=== PATIENT | male | born 1970 | race African-American/Black ===

== ENCOUNTER 2020-03-09 10:53 | Inpatient (IN) | payer OTHER ==
[~2020-03-09] VITALS: Ht 180.3 cm; Wt 116.0 kg
[~2020-03-09 10:53] MED LIST: AML5T PO; HYDR25TA4 PO; LOSA-69 PO; MET50T PO
[2020-03-09] MEDS ORDERED: MORPHINE SULFATE 4 MG/ML SYR/VIAL IV ONE (11:00)
[2020-03-09] MEDS ORDERED: ONDANSETRON HCL 4 MG/2 ML VIAL IV ONE (11:00)
[2020-03-09 11:36] LABS: Basophils # (auto) 0.1 10 ^3/uL (0-0.2); Basophils % (auto) 2.4 % (0.0-2.0); Eosinophils # (auto) 0.7 10 ^3/uL (0-0.8); Eosinophils % (auto) 14.1 % (0.0-7.0); Hematocrit 48.6 % (41.0-53.0); Hemoglobin 15.8 g/dL (13.5-17.5); Lymphocytes # (auto) 1.7 10 ^3/uL (0.4-5.4); Lymphocytes % (auto) 32.7 % (10.0-50.0); Mean Corpuscular Hemoglobin 27.1 pg (28.0-32.0); Mean Corpuscular Hgb Conc. 32.5 g/dL (32.0-36.0); Mean Corpuscular Volume 83.5 fL (80.0-100.0); Monocytes # (auto) 0.4 10 ^3/uL (0-1.3); Monocytes % (auto) 7.9 % (0.0-12.0); Neutrophils # (auto) 2.2 10 ^3/uL (1.6-8.6); Neutrophils % (auto) 42.9 % (37.0-80.0); Nucleated Red Blood Cells % 0.1 %; Platelet Count (auto) 256 10^3/uL (140-450); Red Blood Cells 5.82 10^6/uL (4.5-5.90); Red Cell Distribution Width 14.4 % (11.8-14.3); White Blood Cell 5.1 10^3/uL (4.4-10.8)
[2020-03-09 11:55] LABS: Anion Gap 4 (5-15); Blood Urea Nitrogen 11 mg/dL (7-18); Calcium 9.3 mg/dL (8.5-10.1); Carbon Dioxide 30 mmol/L (21-32); Chloride 105 mmol/L (98-107); Glucose 95 mg/dL (74-106); Potassium 3.8 mmol/L (3.5-5.1); Sodium 139 mmol/L (136-145)
[2020-03-09 12:00] LABS: Alanine Aminotransferase 22 U/L (16-61); Alkaline Phosphatase 56 U/L (45-117); Aspartate Aminotransferase 18 U/L (15-37); BUN/Creatinine Ratio 8.5; Bilirubin, Total 0.6 mg/dL (0.2-1.0); GFR African American 75 mL/min; GFR Non-African American 62 mL/min; Total Protein 7.8 g/dL (6.4-8.2)
[2020-03-09] MEDS ORDERED: ALBUTEROL SULF 2.5 MG/0.5ML(0.5%) NEB SOLN NEB SCH (13:15)
[2020-03-09] MEDS ORDERED: NITROGLYCERIN 0.4 MG SL TAB SL PRN (13:15)
[2020-03-09] MEDS ORDERED: BUDESONIDE (INHALATION) 0.5 MG/2 ML NEB NEB SCH (13:15)
[2020-03-09] MEDS ORDERED: MORPHINE SULF INJ 2 MG/ML SYRINGE 1ML IV PRN (13:15)
[2020-03-09] MEDS ORDERED: HYDROcodone-ACET 10/325MG TAB PO SCH (14:00)
[2020-03-09] MEDS ORDERED: METF-370 PO (14:32)
[2020-03-09] MEDS ORDERED: TRIA0.1C4 EX (14:32)
[2020-03-09] MEDS ORDERED: ASPI-498 PO (14:32)
[2020-03-09] MEDS ORDERED: ALBUAER3 IN (14:32)
[2020-03-09] MEDS ORDERED: BUDE1AER4 IN (14:32)
[2020-03-09] MEDS ORDERED: FLUT1SPR5 (14:32)
[2020-03-09 15:30] VITALS: BP 134/79
--- NOTE | 2020-03-09 15:30 | NUR ---
Telemetry admit from ER IDA MOSHER admitted to Telemetry unit after SBAR received. Patient oriented to Lou Tony, primary RN, unit, room, bed, and unit policies regarding patient care. Patient now on continuous telemetry monitoring, tele box # 41 and telemetry reading on arrival to unit is sinus rhythm in the 60's. Updated on POC and instructed to call for assistance as needed. Bed locked in lowest position, side rails up x2, call light within reach. Guards at bedside. Will continue to monitor q1hr and PRN.
--- NOTE | 2020-03-09 17:45 | NUR ---
COVID SWAB TAKEN TO LAB
--- NOTE | 2020-03-09 19:30 | NUR ---
Opening Shift Note Assumed care of patient, awake and alert. No S/S of distress/SOB or pain noted. Instructed on POC and to call for assist PRN. Bed is in lowest locked position with bed rails up x2 and call light is within reach of the patient. Guard at the bedside.
--- NOTE | 2020-03-09 20:30 | NUR ---
Paged Dr. May: Paged Dr. May for breathing treatment. Patient stated he takes breathing treatments at home for his asthma and says he may need one soon. No PRNs available. Waiting for call back.
--- NOTE | 2020-03-09 20:45 | NUR ---
called back: Md May called back, updated about patients request for breathing treatment for asthma. New orders received. To place orders.
[2020-03-09] MEDS: HYDROcodone-ACET 10/325MG TAB PO PRN (20:59)
--- NOTE | 2020-03-09 21:30 | NUR ---
Breathing treatment on hold: Per RT per policy. Patient cannot have breathing treatment until COVID result comes back negative. Informed patient and patient verbalized understanding.
[2020-03-09 22:00] VITALS: BP 135/98
--- NOTE | 2020-03-10 00:35 | NUR ---
MD Diamond at the bedside.
[2020-03-10] MEDS: ALBUTEROL SULF 2.5 MG/0.5ML(0.5%) NEB SOLN NEB PRN ×2 (01:07→09:14)
[2020-03-10 01:24] VITALS: BP 135/98
[2020-03-10] MEDS ORDERED: ALBUTEROL SULF HFA 90MCG INH 200DOSE IN SCH ×2 (02:00)
[2020-03-10 05:00] VITALS: BP 140/96
--- NOTE | 2020-03-10 07:30 | NUR ---
Opening Shift Note Assumed care of patient, awake and alert. No S/S of distress/SOB or pain noted. Instructed on POC and to call for assistance PRN. Bed locked in lowest position with bed rails up x2 and call light is within reach of the patient. Guard at the bedside. Will continue to monitor q1hr and PRN.
[2020-03-10 08:59] VITALS: BP 145/100
--- NOTE | 2020-03-10 09:36 | NUR ---
Respiratory note: PATIENT REQUESTED PRN MED-NEB TX. MEDICATION ADMINISTERED AT 0915 PATIENT WAS HAVING EXPIRATORY WHEEZING T/O. 1000 PULMICORT ADMINISTERED AT THIS TIME WELL. PATIENT STATED RELIEF POST TX. HE WAS INSTRUCTED TO REQUEST RESPIRATORY SERVICES AGAIN IF HE FELT THE NEED FOR PRN MED-NEB AT A LATER TIME.
[2020-03-10] MEDS ORDERED: METOPROLOL SUCCINATE XL 50 MG TAB PO SCH (10:00)
[2020-03-10] MEDS ORDERED: ASPirin-EC 81 mg tab PO SCH (10:00)
[2020-03-10] MEDS ORDERED: LISINOPRIL 5 MG TAB PO SCH (10:00)
[2020-03-10] MEDS ORDERED: HCTZ 25 MG TAB PO SCH (10:00)
[2020-03-10] MEDS ORDERED: ENOXAPARIN SOD 40 MG/0.4 ML SYRINGE SC SCH (10:00)
[2020-03-10] MEDS ORDERED: BUDESONIDE (INHALATION) 0.5 MG/2 ML NEB NEB SCH (10:00)
[2020-03-10] MEDS ORDERED: PANTOPRAZOLE 40 MG TAB PO SCH (10:00)
[2020-03-10] MEDS: HYDROcodone-ACET 10/325MG TAB PO PRN (10:02)
--- NOTE | 2020-03-10 10:03 | NUR ---
Blood glucose check, BS 119.
[2020-03-10 12:31] VITALS: BP 124/87
[2020-03-10] MEDS ORDERED: NAP500T PO (16:28)
[2020-03-10] MEDS ORDERED: TIZA4CAP PO (16:28)
[2020-03-10 16:52] VITALS: BP 128/87
[2020-03-10 17:22] VITALS: BP 128/87
--- NOTE | 2020-03-10 18:15 | NUR ---
DISCHARGE TO LONGTERM Discharge instructions given as ordered. Encourage to follow up with [facility] as instructed. All questions and concerns addressed. Patient verbalized understanding. Medication reconciliation form completed and copy given to guards. IV's removed with catheter intact, pressure dressing applied. Telemetry unit returned to ICU. Patient released to the care of the guards, pending pickup.
== END 2020-03-10 18:27 | DRG 313 ==
LOC: ER 10:53 → EEVIPCON 10:53 → EDBD 10:53 → TELE 10:54 → TELE-CENTR 15:22
PROVIDERS: ADMIT Internal Medicine; ATTEND Internal Medicine
DX: R07.89 Other chest pain (principal); E11.9 Type 2 diabetes mellitus without complications; I10 Essential (primary) hypertension; I48.91 Unspecified atrial fibrillation; J45.909 Unspecified asthma, uncomplicated; M10.9 Gout, unspecified; Z20.828 Contact with and (suspected) exposure to other viral communicable diseases; Z82.49 Family history of ischemic heart disease and other diseases of the circulatory system; Z82.5 Family history of asthma and other chronic lower respiratory diseases; Z83.3 Family history of diabetes mellitus; Z87.891 Personal history of nicotine dependence; Z79.899 Other long term (current) drug therapy; Z79.82 Long term (current) use of aspirin
CPT/HCPCS: 36415; 71045; 80053; 82962; 83880; 84484; 85025; 93005; 94640; 96374; 96375; G0378; J2405

== ENCOUNTER 2020-06-21 11:45 | Inpatient (IN) | payer OTHER ==
[~2020-06-21] VITALS: Ht 177.8 cm; Wt 104.3 kg
[~2020-06-21 11:45] MED LIST changes: +ALBUAER3 IN; +ASPI-498 PO; +BUDE1AER4 IN; +FLUT1SPR5; +METF-370 PO; +NAP500T PO; +TIZA4CAP PO; +TRIA0.1C4 EX
[2020-06-21] MEDS ORDERED: methylPREDNISolone SOD SUCC 125 MG/2 ML VL IV ONE (12:30)
[2020-06-21 14:01] LABS: Basophils # (auto) 0 10 ^3/uL (0-0.2); Basophils % (auto) 1.2 % (0.0-2.0); Eosinophils # (auto) 0.1 10 ^3/uL (0-0.8); Eosinophils % (auto) 3.6 % (0.0-7.0); Hematocrit 46.5 % (41.0-53.0); Hemoglobin 15.7 g/dL (13.5-17.5); Lymphocytes # (auto) 1.3 10 ^3/uL (0.4-5.4); Lymphocytes % (auto) 33.8 % (10.0-50.0); Mean Corpuscular Hemoglobin 27.7 pg (28.0-32.0); Mean Corpuscular Hgb Conc. 33.7 g/dL (32.0-36.0); Mean Corpuscular Volume 82.2 fL (80.0-100.0); Monocytes # (auto) 0.4 10 ^3/uL (0-1.3); Monocytes % (auto) 10.5 % (0.0-12.0); Neutrophils % (auto) 50.9 % (37.0-80.0); Platelet Count (auto) 217 10^3/uL (140-450); Red Blood Cells 5.66 10^6/uL (4.5-5.90); Red Cell Distribution Width 14.4 % (11.8-14.3); White Blood Cell 3.9 10^3/uL (4.4-10.8)
[2020-06-21 14:30] LABS: Alanine Aminotransferase 21 U/L (16-61); Albumin 3.9 g/dL (3.4-5.0); Alkaline Phosphatase 61 U/L (45-117); Anion Gap 6 (5-15); Aspartate Aminotransferase 20 U/L (15-37); BUN/Creatinine Ratio 10.4; Bilirubin, Total 0.4 mg/dL (0.2-1.0); Blood Urea Nitrogen 12 mg/dL (7-18); CRP High Sensitivity 0.54 mg/dL (< 0.3); Calcium 8.8 mg/dL (8.5-10.1); Carbon Dioxide 27 mmol/L (21-32); Chloride 106 mmol/L (98-107); GFR African American 86 mL/min; GFR Non-African American 71 mL/min; Glucose 90 mg/dL (74-106); Lactate Dehydrogenase 235 U/L (87-241); Magnesium 2.6 mg/dL (1.6-2.6); Potassium 3.7 mmol/L (3.5-5.1); Sodium 139 mmol/L (136-145); Total Protein 7.9 g/dL (6.4-8.2)
[2020-06-21] MEDS ORDERED: IPRATROPIUM BROM 0.5 MG/2.5ML INH SOL HHN ONE (15:30)
[2020-06-21] MEDS ORDERED: ALBUTEROL SULF 2.5 MG/0.5ML(0.5%) NEB SOLN HHN ONE (15:30)
[2020-06-21] MEDS ORDERED: NITROGLYCERIN 0.4 MG SL TAB SL PRN (16:30)
[2020-06-21] MEDS ORDERED: MORPHINE SULF INJ 2 MG/ML SYRINGE 1ML IV PRN (16:30)
[2020-06-21] MEDS: metFORMIN HYDROCHLORIDE 500 MG TAB PO SCH ×2 (17:00→17:24)
[2020-06-21] MEDS ORDERED: DEXTROSE (50%) 50ML SYRG IV PRN (18:00)
[2020-06-21] MEDS ORDERED: HYDROcodone-ACET 10/325MG TAB PO PRN (18:00)
[2020-06-21] MEDS ORDERED: ONDANSETRON HCL 4 MG/2 ML VIAL IV PRN (18:00)
[2020-06-21] MEDS: InsuLIN REG 1unit/0.01ml Soln (100units/ml) SC SCH (22:00)
[2020-06-21] MEDS: ACCU-CHEK COMFORT CURVE STRIP VI SCH (22:50)
[2020-06-22] MEDS: InsuLIN REG 1unit/0.01ml Soln (100units/ml) SC SCH ×2 (06:30→13:54)
[2020-06-22] MEDS: ACCU-CHEK COMFORT CURVE STRIP VI SCH ×2 (06:30→14:00)
[2020-06-22] MEDS ORDERED: ASPirin 81 mg TAB PO SCH (10:00)
[2020-06-22] MEDS ORDERED: LOSARTAN POTASSIUM 50 MG TAB PO SCH ×2 (10:00)
[2020-06-22] MEDS ORDERED: HCTZ 25 MG TAB PO SCH (10:00)
[2020-06-22] MEDS ORDERED: ALBUTEROL SULF HFA 90MCG INH 200DOSE IN SCH (14:00)
[2020-06-22 14:35] VITALS: BP 131/92
[2020-06-22] MEDS ORDERED: BUDESONIDE (INHALATION) 180 MCG IH IN SCH (22:00)
[2020-06-22] MEDS ORDERED: PULMICORT 180 MCG INH SCH (22:00)
== END 2020-06-22 16:19 | DRG 313 ==
LOC: EEVIPCON 11:45 → ER 11:45 → EDBD 11:45 → TELE 11:46
PROVIDERS: ADMIT Internal Medicine; ATTEND Internal Medicine
DX: R07.89 Other chest pain (principal); U07.1 COVID-19; E11.9 Type 2 diabetes mellitus without complications; I10 Essential (primary) hypertension; J45.909 Unspecified asthma, uncomplicated; M10.9 Gout, unspecified; Z83.3 Family history of diabetes mellitus; Z82.49 Family history of ischemic heart disease and other diseases of the circulatory system; Z87.891 Personal history of nicotine dependence; Z82.5 Family history of asthma and other chronic lower respiratory diseases
CPT/HCPCS: 36415; 71045; 80053; 82728; 82962; 83605; 83615; 83735; 83880; 84484; 85025; 85379; 86141; 87040; 94640; 96374; G0378; J1815

== ENCOUNTER 2020-08-27 22:02 | Emergency (ER) | payer OTHER ==
[~2020-08-27] VITALS: Ht 180.3 cm; Wt 112.5 kg
[2020-08-27 22:34] LABS: Basophils # (auto) 0 10 ^3/uL (0-0.2); Basophils % (auto) 0.2 % (0.0-2.0); Eosinophils # (auto) 0.7 10 ^3/uL (0-0.8); Eosinophils % (auto) 10.6 % (0.0-7.0); Hematocrit 42.3 % (41.0-53.0); Hemoglobin 14.6 g/dL (13.5-17.5); Lymphocytes # (auto) 2.4 10 ^3/uL (0.4-5.4); Lymphocytes % (auto) 34.8 % (10.0-50.0); Mean Corpuscular Hemoglobin 28.2 pg (28.0-32.0); Mean Corpuscular Hgb Conc. 34.6 g/dL (32.0-36.0); Mean Corpuscular Volume 81.4 fL (80.0-100.0); Monocytes # (auto) 0.5 10 ^3/uL (0-1.3); Monocytes % (auto) 7.8 % (0.0-12.0); Neutrophils # (auto) 3.2 10 ^3/uL (1.6-8.6); Neutrophils % (auto) 46.6 % (37.0-80.0); Nucleated Red Blood Cells % 0.1 %; Platelet Count (auto) 267 10^3/uL (140-450); Red Cell Distribution Width 14.6 % (11.8-14.3); White Blood Cell 6.8 10^3/uL (4.4-10.8)
[2020-08-27 22:54] LABS: Alanine Aminotransferase 24 U/L (16-61); Albumin 4.2 g/dL (3.4-5.0); Anion Gap 12 (5-15); Aspartate Aminotransferase 20 U/L (15-37); BUN/Creatinine Ratio 12.1; Blood Urea Nitrogen 16 mg/dL (7-18); Calcium 9.3 mg/dL (8.5-10.1); Carbon Dioxide 21 mmol/L (21-32); Chloride 107 mmol/L (98-107); GFR African American 73 mL/min; GFR Non-African American 61 mL/min; Glucose 93 mg/dL (74-106); INR 1.06 (0.9-1.15); Magnesium 2.2 mg/dL (1.6-2.6); Potassium 3.5 mmol/L (3.5-5.1); Sodium 140 mmol/L (136-145)
[2020-08-27 22:58] LABS: Alkaline Phosphatase 50 U/L (45-117); Bilirubin, Total 0.6 mg/dL (0.2-1.0); Total Protein 7.7 g/dL (6.4-8.2)
[2020-08-27] MEDS ORDERED: ACETAMINOPHEN 500 MG TAB PO ONE (23:45)
[2020-08-28 04:00] VITALS: BP 145/104
[2020-08-28] MEDS ORDERED: IBUPROFEN 800 MG TAB PO ONE (04:30)
== END 2020-08-28 04:56 | disposition home or self-care (01) ==
LOC: EDBD 22:02 → EEVIPCON 22:08 → ER 22:08
DX: R07.89 Other chest pain (principal); J45.909 Unspecified asthma, uncomplicated; E11.9 Type 2 diabetes mellitus without complications; I10 Essential (primary) hypertension; I25.2 Old myocardial infarction
CPT/HCPCS: 36415; 71045; 80053; 83735; 83880; 84484; 85025; 85610; 93005

== ENCOUNTER 2020-09-08 16:12 | Inpatient (IN) | payer OTHER ==
[~2020-09-08] VITALS: Ht 180.3 cm; Wt 107.9 kg
[2020-09-08 18:36] LABS: Basophils # (auto) 0.1 10 ^3/uL (0-0.2); Basophils % (auto) 2.3 % (0.0-2.0); Eosinophils # (auto) 0.3 10 ^3/uL (0-0.8); Eosinophils % (auto) 7.9 % (0.0-7.0); Hemoglobin 13.5 g/dL (13.5-17.5); Lymphocytes # (auto) 1.5 10 ^3/uL (0.4-5.4); Lymphocytes % (auto) 36.7 % (10.0-50.0); Mean Corpuscular Hemoglobin 27.9 pg (28.0-32.0); Mean Corpuscular Hgb Conc. 33.9 g/dL (32.0-36.0); Mean Corpuscular Volume 82.4 fL (80.0-100.0); Monocytes # (auto) 0.4 10 ^3/uL (0-1.3); Monocytes % (auto) 10.2 % (0.0-12.0); Neutrophils # (auto) 1.8 10 ^3/uL (1.6-8.6); Neutrophils % (auto) 42.9 % (37.0-80.0); Nucleated Red Blood Cells % 0.1 %; Red Blood Cells 4.85 10^6/uL (4.5-5.90); Red Cell Distribution Width 15.1 % (11.8-14.3); White Blood Cell 4.1 10^3/uL (4.4-10.8)
[2020-09-08 19:00] LABS: Alanine Aminotransferase 47 U/L (16-61); Albumin 3.7 g/dL (3.4-5.0); Anion Gap 8 (5-15); Blood Urea Nitrogen 12 mg/dL (7-18); Calcium 8.5 mg/dL (8.5-10.1); Carbon Dioxide 24 mmol/L (21-32); Chloride 110 mmol/L (98-107); Glucose 98 mg/dL (74-106); Potassium 3.4 mmol/L (3.5-5.1); Sodium 142 mmol/L (136-145)
[2020-09-08 19:09] LABS: Alkaline Phosphatase 45 U/L (45-117); Aspartate Aminotransferase 15 U/L (15-37); BUN/Creatinine Ratio 11.1; Bilirubin, Total 0.6 mg/dL (0.2-1.0); GFR African American 92 mL/min; GFR Non-African American 76 mL/min; Total Protein 7.2 g/dL (6.4-8.2)
[2020-09-08] MEDS ORDERED: ACETAMINOPHEN 325 MG TAB PO ONE (20:45)
[2020-09-08] MEDS ORDERED: MORPHINE SULFATE INJECTION 2 MG/ML SYRG IV PRN (22:00)
[2020-09-08] MEDS ORDERED: NITROGLYCERIN 0.4 MG SL TAB SL PRN (22:00)
[2020-09-08] MEDS ORDERED: DEXTROSE (50%) 50ML SYRG IV PRN (22:00)
[2020-09-08] MEDS: InsuLIN REG 1unit/0.01ml Soln (100units/ml) SC SCH (22:52)
[2020-09-08] MEDS: ACCU-CHEK COMFORT CURVE STRIP VI SCH (22:52)
[2020-09-09] MEDS: HYDROcodone-ACET 10/325MG TAB PO PRN ×2 (02:35→17:58)
[2020-09-09] MEDS ORDERED: metFORMIN HYDROCHLORIDE 500 MG TAB PO SCH (07:00)
[2020-09-09] MEDS: InsuLIN REG 1unit/0.01ml Soln (100units/ml) SC SCH ×4 (07:00→22:00)
[2020-09-09] MEDS: ACCU-CHEK COMFORT CURVE STRIP VI SCH ×4 (07:04→22:07)
[2020-09-09] MEDS: SYMBICORT IN SCH ×2 (10:00→22:00)
[2020-09-09] MEDS: ENOXAPARIN SOD 40 MG/0.4 ML SYRINGE SC SCH (10:10)
[2020-09-09] MEDS: amLODIPine BESYLATE 5 MG TAB PO SCH (10:11)
[2020-09-09] MEDS: METOPROLOL TARTRATE 50 MG TAB PO SCH (10:12)
[2020-09-09] MEDS: LOSARTAN POTASSIUM 50 MG TAB PO SCH (10:13)
[2020-09-09] MEDS: ASPirin-EC 81 mg tab PO SCH (11:47)
[2020-09-09] MEDS: HCTZ 25 MG TAB PO SCH (11:48)
[2020-09-09] MEDS: ALBUTEROL SULF HFA 90MCG INH 200DOSE IN SCH (13:21)
[2020-09-09] MEDS ORDERED: HYDROcodone-ACET 10/325MG TAB PO PRN (13:30)
[2020-09-09 14:30] VITALS: BP 124/72
[2020-09-09] MEDS: ALBUTEROL SULF 2.5 MG/0.5ML(0.5%) NEB SOLN NEB SCH (18:50)
[2020-09-09 20:00] VITALS: BP 116/75
[2020-09-09] MEDS: methylPREDNISolone SOD SUCC 125 MG/2 ML VL IV SCH (22:10)
[2020-09-10 04:00] VITALS: BP_SYST 118; BP_SYST 141; BP_DIAS 81; BP_DIAS 85
[2020-09-10] MEDS: ALBUTEROL SULF 2.5 MG/0.5ML(0.5%) NEB SOLN NEB SCH ×2 (06:26→13:01)
[2020-09-10] MEDS: InsuLIN REG 1unit/0.01ml Soln (100units/ml) SC SCH ×2 (06:39→11:27)
[2020-09-10] MEDS: HYDROcodone-ACET 10/325MG TAB PO PRN (06:40)
[2020-09-10] MEDS: ACCU-CHEK COMFORT CURVE STRIP VI SCH ×2 (06:40→11:27)
[2020-09-10] MEDS: ASPirin-EC 81 mg tab PO SCH (09:25)
[2020-09-10] MEDS: LOSARTAN POTASSIUM 50 MG TAB PO SCH (09:25)
[2020-09-10] MEDS: HCTZ 25 MG TAB PO SCH (09:25)
[2020-09-10] MEDS: methylPREDNISolone SOD SUCC 125 MG/2 ML VL IV SCH (09:25)
[2020-09-10] MEDS: ENOXAPARIN SOD 40 MG/0.4 ML SYRINGE SC SCH (09:26)
[2020-09-10] MEDS: amLODIPine BESYLATE 5 MG TAB PO SCH (09:26)
[2020-09-10] MEDS: METOPROLOL TARTRATE 50 MG TAB PO SCH (09:26)
[2020-09-10] MEDS ORDERED: LORATADINE 10 MG TAB PO SCH (10:00)
[2020-09-10] MEDS ORDERED: FLUTICASONE PROP NASAL SPR 0.05 % (50MCG) 16GM EACHNOSTRI SCH (10:00)
[2020-09-10] MEDS: SYMBICORT IN SCH (10:00)
[2020-09-10 11:28] VITALS: BP 119/82
[2020-09-10] MEDS ORDERED: AZITTAB PO (13:21)
[2020-09-10] MEDS ORDERED: PRED20TA2 PO (13:21)
== END 2020-09-10 13:40 | DRG 313 ==
LOC: ER 16:12 → EEVIPCON 16:12 → EDBD 16:12 → TELE 16:13
PROVIDERS: ADMIT Internal Medicine; ATTEND Internal Medicine
DX: R07.9 Chest pain, unspecified (principal); J45.909 Unspecified asthma, uncomplicated; E11.9 Type 2 diabetes mellitus without complications; I10 Essential (primary) hypertension; I25.10 Atherosclerotic heart disease of native coronary artery without angina pectoris; K21.9 Gastro-esophageal reflux disease without esophagitis; Z20.822 Contact with and (suspected) exposure to COVID-19; Z82.49 Family history of ischemic heart disease and other diseases of the circulatory system; Z82.5 Family history of asthma and other chronic lower respiratory diseases; Z83.3 Family history of diabetes mellitus; Z87.891 Personal history of nicotine dependence; Z91.19 Patient's noncompliance with other medical treatment and regimen
CPT/HCPCS: 36415; 71045; 80053; 82962; 83880; 84484; 85025; 85379; 87426; 93005; 94640; G0378

== ENCOUNTER 2020-09-30 22:52 | Inpatient (IN) | payer OTHER ==
[~2020-09-30] VITALS: Ht 180.3 cm; Wt 113.1 kg
[~2020-09-30 22:52] MED LIST changes: +AZITTAB PO; +PRED20TA2 PO
[2020-09-30 23:27] LABS: Basophils # (auto) 0.1 10 ^3/uL (0-0.2); Basophils % (auto) 1.2 % (0.0-2.0); Eosinophils # (auto) 0.6 10 ^3/uL (0-0.8); Eosinophils % (auto) 10.7 % (0.0-7.0); Hematocrit 43.9 % (41.0-53.0); Lymphocytes # (auto) 1.7 10 ^3/uL (0.4-5.4); Lymphocytes % (auto) 28.7 % (10.0-50.0); Mean Corpuscular Hemoglobin 28.2 pg (28.0-32.0); Mean Corpuscular Hgb Conc. 34.1 g/dL (32.0-36.0); Mean Corpuscular Volume 82.8 fL (80.0-100.0); Monocytes # (auto) 0.4 10 ^3/uL (0-1.3); Monocytes % (auto) 6.6 % (0.0-12.0); Neutrophils # (auto) 3.2 10 ^3/uL (1.6-8.6); Neutrophils % (auto) 52.8 % (37.0-80.0); Nucleated Red Blood Cells % 0.1 %; Red Cell Distribution Width 14.8 % (11.8-14.3)
[2020-09-30 23:44] LABS: INR 1.05 (0.9-1.15)
[2020-09-30 23:48] LABS: Alanine Aminotransferase 32 U/L (16-61); Albumin 4.3 g/dL (3.4-5.0); Anion Gap 11 (5-15); Aspartate Aminotransferase 22 U/L (15-37); BUN/Creatinine Ratio 10.7; Blood Urea Nitrogen 16 mg/dL (7-18); Calcium 9.5 mg/dL (8.5-10.1); Carbon Dioxide 24 mmol/L (21-32); Chloride 107 mmol/L (98-107); GFR African American 64 mL/min; GFR Non-African American 53 mL/min; Glucose 101 mg/dL (74-106); Magnesium 2.2 mg/dL (1.6-2.6); Potassium 3.8 mmol/L (3.5-5.1); Sodium 142 mmol/L (136-145)
[2020-09-30 23:53] LABS: Alkaline Phosphatase 59 U/L (45-117); Bilirubin, Total 0.5 mg/dL (0.2-1.0); Total Protein 7.7 g/dL (6.4-8.2)
[2020-10-01] VITALS (8 sets, daily range): BP systolic 127–154; BP diastolic 77–94
[2020-10-01] MEDS ORDERED: NITROGLYCERIN 0.4 MG SL TAB SL ONE ×2 (00:35→00:45)
[2020-10-01] MEDS ORDERED: ACETAMINOPHEN 325 MG TAB PO ONE (02:30)
[2020-10-01] MEDS ORDERED: NITROGLYCERIN 0.4 MG SL TAB SL PRN (06:15)
[2020-10-01] MEDS ORDERED: ATOR40TA52 PO (06:23)
[2020-10-01] MEDS ORDERED: APIX5TAB PO (06:23)
[2020-10-01] MEDS ORDERED: ISOS10TA2 PO (06:23)
[2020-10-01] MEDS ORDERED: LOSA-69 PO (06:23)
[2020-10-01] MEDS ORDERED: GLIP5TAB12 PO (06:23)
[2020-10-01] MEDS ORDERED: MET50T PO (06:23)
[2020-10-01] MEDS ORDERED: FURO20TA3 PO (06:23)
[2020-10-01] MEDS ORDERED: LACT10PA2 PO (06:23)
[2020-10-01] MEDS ORDERED: OMEP-434 PO (06:23)
[2020-10-01] MEDS: HYDROcodone-ACET 10/325MG TAB PO PRN ×2 (06:41→22:31)
[2020-10-01] MEDS ORDERED: metFORMIN HYDROCHLORIDE 500 MG TAB PO SCH (07:00)
[2020-10-01] MEDS: ALBUTEROL SULF HFA 90MCG INH 200DOSE IN PRN (07:50)
[2020-10-01] MEDS ORDERED: DEXTROSE (50%) 50ML SYRG IV PRN (09:15)
[2020-10-01] MEDS ORDERED: APIXABAN 5 MG TAB PO SCH (10:00)
[2020-10-01] MEDS: BUDESONIDE (INHALATION) 0.5 MG/2 ML NEB NEB SCH ×2 (10:00→23:00)
[2020-10-01] MEDS: PANTOPRAZOLE 40 MG TAB PO SCH (10:00)
[2020-10-01] MEDS: APIXABAN 5 MG TAB PO SCH ×2 (10:40→21:14)
[2020-10-01] MEDS: METOPROLOL TARTRATE 50 MG TAB PO SCH (10:40)
[2020-10-01] MEDS: amLODIPine BESYLATE 5 MG TAB PO SCH (10:41)
[2020-10-01] MEDS: LOSARTAN POTASSIUM 50 MG TAB PO SCH (10:42)
[2020-10-01] MEDS: ASPirin 81 mg TAB PO SCH (10:42)
[2020-10-01] MEDS: SOD CHL 0.45% WITH 20MEQ KCL 1,000 ML IV SCH ×2 (10:48→18:18)
[2020-10-01] MEDS: InsuLIN REG 1unit/0.01ml Soln (100units/ml) SC SCH ×3 (12:00→23:53)
[2020-10-01] MEDS: ACCU-CHEK COMFORT CURVE STRIP VI SCH ×3 (12:16→23:53)
[2020-10-01] MEDS: HCTZ 25 MG TAB PO SCH (12:30)
[2020-10-02] MEDS: SOD CHL 0.45% WITH 20MEQ KCL 1,000 ML IV SCH ×3 (03:04→17:20)
[2020-10-02 05:00] VITALS: BP 137/93
[2020-10-02] MEDS: ACCU-CHEK COMFORT CURVE STRIP VI SCH ×4 (05:53→23:31)
[2020-10-02] MEDS: InsuLIN REG 1unit/0.01ml Soln (100units/ml) SC SCH ×4 (05:53→23:31)
[2020-10-02] MEDS: BUDESONIDE (INHALATION) 0.5 MG/2 ML NEB NEB SCH ×2 (07:29→19:48)
[2020-10-02] MEDS: ALBUTEROL SULF HFA 90MCG INH 200DOSE IN PRN (07:30)
[2020-10-02 08:00] LABS: Chloride 111 mmol/L (98-107); Potassium 3.7 mmol/L (3.5-5.1); Sodium 142 mmol/L (136-145)
[2020-10-02 08:09] LABS: Alanine Aminotransferase 28 U/L (16-61); Albumin 3.6 g/dL (3.4-5.0); Alkaline Phosphatase 51 U/L (45-117); Anion Gap 5 (5-15); Aspartate Aminotransferase 14 U/L (15-37); BUN/Creatinine Ratio 10.7; Bilirubin, Total 0.3 mg/dL (0.2-1.0); Blood Urea Nitrogen 13 mg/dL (7-18); Carbon Dioxide 26 mmol/L (21-32); GFR African American 80 mL/min; GFR Non-African American 66 mL/min; Glucose 88 mg/dL (74-106); Total Protein 6.9 g/dL (6.4-8.2)
[2020-10-02 09:00] VITALS: BP 148/75
[2020-10-02] MEDS: LOSARTAN POTASSIUM 50 MG TAB PO SCH (09:38)
[2020-10-02] MEDS: ASPirin 81 mg TAB PO SCH (09:38)
[2020-10-02] MEDS: APIXABAN 5 MG TAB PO SCH ×2 (09:38→21:01)
[2020-10-02] MEDS: HCTZ 25 MG TAB PO SCH (09:39)
[2020-10-02] MEDS: amLODIPine BESYLATE 5 MG TAB PO SCH (09:39)
[2020-10-02] MEDS: PANTOPRAZOLE 40 MG TAB PO SCH (09:39)
[2020-10-02] MEDS: HYDROcodone-ACET 10/325MG TAB PO PRN (09:43)
[2020-10-02] MEDS: METOPROLOL TARTRATE 50 MG TAB PO SCH (10:00)
[2020-10-02 13:00] VITALS: BP 144/91
[2020-10-02] MEDS: ALBUTEROL SULF 2.5 MG/0.5ML(0.5%) NEB SOLN NEB SCH ×2 (13:23→19:48)
[2020-10-02 17:00] VITALS: BP 137/85
[2020-10-02 22:00] VITALS: BP 127/72
[2020-10-03] MEDS: ALBUTEROL SULF 2.5 MG/0.5ML(0.5%) NEB SOLN NEB SCH ×3 (00:32→11:35)
[2020-10-03] MEDS: HYDROcodone-ACET 10/325MG TAB PO PRN (01:48)
[2020-10-03] MEDS: SOD CHL 0.45% WITH 20MEQ KCL 1,000 ML IV SCH ×2 (03:22→11:15)
[2020-10-03 05:00] VITALS: BP 145/85
[2020-10-03] MEDS: ACCU-CHEK COMFORT CURVE STRIP VI SCH ×2 (05:31→12:14)
[2020-10-03] MEDS: InsuLIN REG 1unit/0.01ml Soln (100units/ml) SC SCH ×2 (05:31→12:00)
[2020-10-03] MEDS: BUDESONIDE (INHALATION) 0.5 MG/2 ML NEB NEB SCH (07:15)
[2020-10-03] MEDS ORDERED: IOPAMIDOL 76 % (ISOVUE-370) 100ML BTL IV ONE (08:11)
[2020-10-03] MEDS ORDERED: IODIXANOL 320MG/ML 100ML BTL IV ONE (08:27)
[2020-10-03 09:00] VITALS: BP 144/77
[2020-10-03] MEDS: ASPirin 81 mg TAB PO SCH (10:41)
[2020-10-03] MEDS: LOSARTAN POTASSIUM 50 MG TAB PO SCH (10:42)
[2020-10-03] MEDS: HCTZ 25 MG TAB PO SCH (10:42)
[2020-10-03] MEDS: APIXABAN 5 MG TAB PO SCH (10:43)
[2020-10-03] MEDS: METOPROLOL TARTRATE 50 MG TAB PO SCH (10:43)
[2020-10-03] MEDS: PANTOPRAZOLE 40 MG TAB PO SCH (10:43)
[2020-10-03] MEDS: amLODIPine BESYLATE 5 MG TAB PO SCH (10:44)
[2020-10-03 13:00] VITALS: BP 118/68
== END 2020-10-03 15:00 | DRG 313 ==
LOC: EDBD 22:52 → EEVIPCON 22:56 → ER 22:56 → TELE 22:57 → TELE-EAST 10-01 04:19 → TELE-WESTW 10-01 12:53
PROVIDERS: ADMIT Internal Medicine; ATTEND Internal Medicine
DX: R07.89 Other chest pain (principal); I25.10 Atherosclerotic heart disease of native coronary artery without angina pectoris; E11.9 Type 2 diabetes mellitus without complications; I10 Essential (primary) hypertension; J45.909 Unspecified asthma, uncomplicated; K21.9 Gastro-esophageal reflux disease without esophagitis; M10.9 Gout, unspecified; Z20.822 Contact with and (suspected) exposure to COVID-19; Z79.01 Long term (current) use of anticoagulants; Z82.49 Family history of ischemic heart disease and other diseases of the circulatory system; Z82.5 Family history of asthma and other chronic lower respiratory diseases; Z83.3 Family history of diabetes mellitus; Z86.711 Personal history of pulmonary embolism; Z86.718 Personal history of other venous thrombosis and embolism; Z87.891 Personal history of nicotine dependence; Z91.19 Patient's noncompliance with other medical treatment and regimen
CPT/HCPCS: 36415; 71045; 71275; 80053; 82962; 83735; 83880; 84443; 84484; 85025; 85379; 85610; 85730; 87081; 87426; 93005; 93970; 94640; 96360; G0378; Q9967

== ENCOUNTER 2020-11-21 19:50 | Inpatient (IN) | payer OTHER ==
[~2020-11-21] VITALS: Ht 180.3 cm; Wt 108.9 kg
[~2020-11-21 19:50] MED LIST changes: -AML5T PO; +APIX5TAB PO; +ATOR40TA52 PO; -AZITTAB PO; +FURO20TA3 PO; +GLIP5TAB12 PO; -HYDR25TA4 PO; +ISOS10TA2 PO; +LACT10PA2 PO; -METF-370 PO; -NAP500T PO; +OMEP-434 PO; -PRED20TA2 PO; -TIZA4CAP PO; -TRIA0.1C4 EX
[2020-11-21 20:30] LABS: Basophils # (auto) 0.1 10 ^3/uL (0-0.2); Basophils % (auto) 1.3 % (0.0-2.0); Eosinophils # (auto) 0.6 10 ^3/uL (0-0.8); Eosinophils % (auto) 11.2 % (0.0-7.0); Hematocrit 43.1 % (41.0-53.0); Hemoglobin 14.5 g/dL (13.5-17.5); Mean Corpuscular Hgb Conc. 33.7 g/dL (32.0-36.0); Mean Corpuscular Volume 83.1 fL (80.0-100.0); Monocytes # (auto) 0.4 10 ^3/uL (0-1.3); Neutrophils # (auto) 2.5 10 ^3/uL (1.6-8.6); Neutrophils % (auto) 45.5 % (37.0-80.0); Nucleated Red Blood Cells % 0.1 %; Red Blood Cells 5.19 10^6/uL (4.5-5.90); Red Cell Distribution Width 14.3 % (11.8-14.3); White Blood Cell 5.6 10^3/uL (4.4-10.8)
[2020-11-21 20:39] LABS: Alanine Aminotransferase 30 U/L (16-61); Albumin 3.9 g/dL (3.4-5.0); Anion Gap 8 (5-15); Aspartate Aminotransferase 20 U/L (15-37); BUN/Creatinine Ratio 11.6; Blood Urea Nitrogen 13 mg/dL (7-18); Calcium 8.9 mg/dL (8.5-10.1); Carbon Dioxide 24 mmol/L (21-32); Chloride 109 mmol/L (98-107); GFR African American 89 mL/min; GFR Non-African American 73 mL/min; Glucose 113 mg/dL (74-106); Magnesium 2.4 mg/dL (1.6-2.6); Potassium 3.6 mmol/L (3.5-5.1); Sodium 141 mmol/L (136-145)
[2020-11-21 20:45] LABS: Alkaline Phosphatase 66 U/L (45-117); Bilirubin, Total 0.3 mg/dL (0.2-1.0); Total Protein 7.3 g/dL (6.4-8.2)
[2020-11-21 20:46] LABS: INR 1.02 (0.9-1.15); Partial Thromboplastin Time 29.6 sec (23.0-31.2)
[2020-11-21] MEDS ORDERED: ONDANSETRON HCL 4 MG/2 ML VIAL IV ONE (21:00)
[2020-11-21] MEDS ORDERED: MORPHINE SULFATE INJECTION 2 MG/ML SYRG IV ONE (21:00)
[2020-11-21] MEDS ORDERED: ASPirin 81 mg TAB PO ONE (21:00)
[2020-11-22] MEDS: MORPHINE SULFATE INJECTION 2 MG/ML SYRG IV PRN ×2 (01:08→11:54)
[2020-11-22] MEDS ORDERED: METF-370 PO (02:16)
[2020-11-22] MEDS ORDERED: NITR1SPR TL (02:16)
[2020-11-22] MEDS ORDERED: NITROGLYCERIN 0.4 MG SL TAB SL PRN (03:15)
[2020-11-22] MEDS ORDERED: ALBUTEROL SULF HFA 90MCG INH 200DOSE IN PRN (03:15)
[2020-11-22] MEDS: ISOSORBIDE DINITRATE 10 MG TAB PO SCH ×2 (06:30→11:54)
[2020-11-22] MEDS ORDERED: glipiZIDE 5 MG TAB PO SCH (07:00)
[2020-11-22] MEDS ORDERED: ALBUTEROL SULF 2.5 MG/0.5ML(0.5%) NEB SOLN NEB PRN (07:45)
[2020-11-22] MEDS ORDERED: metFORMIN HYDROCHLORIDE 500 MG TAB PO SCH (08:00)
[2020-11-22 09:00] VITALS: BP 116/70
[2020-11-22] MEDS ORDERED: PANTOPRAZOLE 40 MG TAB PO SCH (10:00)
[2020-11-22] MEDS ORDERED: LOSARTAN POTASSIUM 50 MG TAB PO SCH (10:00)
[2020-11-22] MEDS ORDERED: OMEPRAZOLE 20MG/10ML ORAL SUSP PO SCH (10:00)
[2020-11-22] MEDS ORDERED: [UNRECOGNIZED DRUG - OTHER] PO SCH (10:00)
[2020-11-22] MEDS ORDERED: APIXABAN 5 MG TAB PO SCH (10:00)
[2020-11-22] MEDS ORDERED: FUROSEMIDE 20 MG TAB PO SCH (10:00)
[2020-11-22] MEDS ORDERED: BUDESONIDE PO SCH (10:00)
[2020-11-22] MEDS ORDERED: FLUTICASONE PROP NASAL SPR 0.05 % (50MCG) 16GM EACHNOSTRI SCH (10:00)
[2020-11-22] MEDS ORDERED: ASPirin-EC 81 mg tab PO SCH (10:00)
[2020-11-22] MEDS ORDERED: METOPROLOL TARTRATE 50 MG TAB PO SCH (10:00)
[2020-11-22 10:15] VITALS: BP 116/70
[2020-11-22 13:00] VITALS: BP 108/68
[2020-11-22 16:08] VITALS: BP 108/68
[2020-11-22 17:00] VITALS: BP 114/72
[2020-11-22] MEDS ORDERED: ATORVASTATIN 20 MG TAB PO SCH (22:00)
== END 2020-11-22 17:30 | DRG 313 ==
LOC: EEVIPCON 19:50 → ER 19:50 → EDBD 19:50 → TELE 23:37 → TELE-WESTW 11-22 03:43
PROVIDERS: ADMIT Internal Medicine; ATTEND Internal Medicine
DX: R07.9 Chest pain, unspecified (principal); E11.9 Type 2 diabetes mellitus without complications; I10 Essential (primary) hypertension; J45.909 Unspecified asthma, uncomplicated; K21.9 Gastro-esophageal reflux disease without esophagitis; M10.9 Gout, unspecified; Z86.711 Personal history of pulmonary embolism; Z86.718 Personal history of other venous thrombosis and embolism; Z91.19 Patient's noncompliance with other medical treatment and regimen; Z20.822 Contact with and (suspected) exposure to COVID-19
CPT/HCPCS: 36415; 71045; 80053; 82962; 83735; 83880; 84443; 84484; 85025; 85379; 85610; 85730; 87426; 93005; 94640; 96374; 96375; G0378; J2405

== ENCOUNTER 2021-02-04 13:14 | Inpatient (IN) | payer OTHER ==
[~2021-02-04] VITALS: Ht 180.3 cm; Wt 117.7 kg
[~2021-02-04 13:14] MED LIST changes: -LACT10PA2 PO; +METF-370 PO; +NITR1SPR TL
[2021-02-04 14:00] LABS: Basophils # (auto) 0.1 10 ^3/uL (0-0.2); Basophils % (auto) 1.8 % (0.0-2.0); Eosinophils # (auto) 0.6 10 ^3/uL (0-0.8); Eosinophils % (auto) 12.9 % (0.0-7.0); Hematocrit 41.8 % (41.0-53.0); Hemoglobin 14.2 g/dL (13.5-17.5); Lymphocytes # (auto) 1.7 10 ^3/uL (0.4-5.4); Lymphocytes % (auto) 34.8 % (10.0-50.0); Mean Corpuscular Hemoglobin 27.7 pg (28.0-32.0); Mean Corpuscular Hgb Conc. 33.9 g/dL (32.0-36.0); Mean Corpuscular Volume 81.9 fL (80.0-100.0); Monocytes # (auto) 0.3 10 ^3/uL (0-1.3); Monocytes % (auto) 7.1 % (0.0-12.0); Neutrophils # (auto) 2.1 10 ^3/uL (1.6-8.6); Neutrophils % (auto) 43.4 % (37.0-80.0); Red Blood Cells 5.11 10^6/uL (4.5-5.90); Red Cell Distribution Width 14.2 % (11.8-14.3); White Blood Cell 4.8 10^3/uL (4.4-10.8)
[2021-02-04 14:31] LABS: Albumin 3.6 g/dL (3.4-5.0); Anion Gap 3 (5-15); Calcium 8.7 mg/dL (8.5-10.1); Carbon Dioxide 28 mmol/L (21-32); Chloride 112 mmol/L (98-107); Glucose 109 mg/dL (74-106); Magnesium 2.3 mg/dL (1.6-2.6); Sodium 143 mmol/L (136-145)
[2021-02-04 14:37] LABS: Alanine Aminotransferase 27 U/L (16-61); Alkaline Phosphatase 48 U/L (45-117); Aspartate Aminotransferase 19 U/L (15-37); Bilirubin, Total 0.5 mg/dL (0.2-1.0); GFR African American 84 mL/min; GFR Non-African American 70 mL/min; Total Protein 7.1 g/dL (6.4-8.2)
[2021-02-04] MEDS ORDERED: MORPHINE SULFATE 4 MG/ML SYR/VIAL IV ONE (15:00)
[2021-02-04 15:14] LABS: BUN/Creatinine Ratio 11.1; Blood Urea Nitrogen 13 mg/dL (7-18)
[2021-02-04] MEDS ORDERED: NITROGLYCERIN 0.4 MG SL TAB SL PRN (15:30)
[2021-02-04] MEDS ORDERED: MORPHINE SULF INJ 2 MG/ML SYRINGE 1ML IV PRN (15:30)
[2021-02-04] MEDS ORDERED: ONDANSETRON HCL 4 MG/2 ML VIAL IV PRN (15:30)
[2021-02-04] MEDS ORDERED: IOHEXOL 350 MG/ML 100ML IJ ONE (15:39)
[2021-02-04] MEDS ORDERED: DEXTROSE (50%) 50ML SYRG IV PRN (16:15)
[2021-02-04] MEDS: InsuLIN REG 1unit/0.01ml Soln (100units/ml) SC SCH ×2 (17:00→21:28)
[2021-02-04] MEDS: ACCU-CHEK COMFORT CURVE STRIP VI SCH ×2 (17:09→21:26)
[2021-02-04 20:00] VITALS: BP 127/81
[2021-02-04] MEDS: MORPHINE SULF INJ 2 MG/ML SYRINGE 1ML IV PRN (20:42)
[2021-02-04] MEDS: APIXABAN 5 MG TAB PO SCH (21:26)
[2021-02-04 22:00] VITALS: BP 127/81
[2021-02-04] MEDS: ALBUTEROL SULF 2.5 MG/0.5ML(0.5%) NEB SOLN NEB PRN (22:18)
[2021-02-04 22:45] VITALS: BP 132/79
[2021-02-04 23:03] VITALS: BP 127/81
[2021-02-05 05:00] VITALS: BP 131/71
[2021-02-05] MEDS: MORPHINE SULF INJ 2 MG/ML SYRINGE 1ML IV PRN ×2 (05:11→21:19)
[2021-02-05] MEDS: InsuLIN REG 1unit/0.01ml Soln (100units/ml) SC SCH ×4 (06:19→21:20)
[2021-02-05] MEDS: ACCU-CHEK COMFORT CURVE STRIP VI SCH ×4 (06:19→21:20)
[2021-02-05 07:06] LABS: Basophils # (auto) 0.1 10 ^3/uL (0-0.2); Basophils % (auto) 1.4 % (0.0-2.0); Eosinophils # (auto) 0.6 10 ^3/uL (0-0.8); Eosinophils % (auto) 10.8 % (0.0-7.0); Hematocrit 41.5 % (41.0-53.0); Hemoglobin 14.3 g/dL (13.5-17.5); Lymphocytes # (auto) 1.5 10 ^3/uL (0.4-5.4); Lymphocytes % (auto) 25.1 % (10.0-50.0); Mean Corpuscular Hemoglobin 28.1 pg (28.0-32.0); Mean Corpuscular Hgb Conc. 34.4 g/dL (32.0-36.0); Mean Corpuscular Volume 81.8 fL (80.0-100.0); Monocytes # (auto) 0.5 10 ^3/uL (0-1.3); Monocytes % (auto) 7.7 % (0.0-12.0); Neutrophils # (auto) 3.3 10 ^3/uL (1.6-8.6); Red Blood Cells 5.07 10^6/uL (4.5-5.90); Red Cell Distribution Width 14.1 % (11.8-14.3); White Blood Cell 5.9 10^3/uL (4.4-10.8)
[2021-02-05] MEDS: ALBUTEROL SULF 2.5 MG/0.5ML(0.5%) NEB SOLN NEB PRN ×4 (07:09→22:05)
[2021-02-05 07:23] LABS: Albumin 3.6 g/dL (3.4-5.0)
[2021-02-05 07:27] LABS: BUN/Creatinine Ratio 14.5; Bilirubin, Total 0.6 mg/dL (0.2-1.0); Total Protein 7.2 g/dL (6.4-8.2)
[2021-02-05] MEDS ORDERED: ADENOSINE 97 MG in GIVE UN-DILUTED 0 ML IV ONE (08:15)
[2021-02-05 09:00] VITALS: BP 157/90
[2021-02-05] MEDS ORDERED: ALBUTEROL SULF 2.5 MG/0.5ML(0.5%) NEB SOLN ONE (09:46)
[2021-02-05] MEDS ORDERED: ALBUTEROL SULF 2.5 MG/0.5ML(0.5%) NEB SOLN NEB ONE (10:30)
[2021-02-05] MEDS: METOPROLOL TARTRATE 25 MG TAB PO SCH (10:51)
[2021-02-05] MEDS: APIXABAN 5 MG TAB PO SCH ×2 (10:51→21:20)
[2021-02-05] MEDS: PANTOPRAZOLE 40 MG TAB PO SCH (10:52)
[2021-02-05 13:00] VITALS: BP 139/89
[2021-02-05] MEDS: HYDROcodone-ACET 5/325MG TAB PO PRN (14:09)
[2021-02-05 17:00] VITALS: BP 124/94
[2021-02-05 20:00] VITALS: BP 150/98
[2021-02-05 22:00] VITALS: BP 150/98
[2021-02-06] MEDS: diphenhdrAMINE HCL 25 MG CAP PO PRN ×3 (01:38→17:44)
[2021-02-06 05:00] VITALS: BP 142/77
[2021-02-06] MEDS: ACCU-CHEK COMFORT CURVE STRIP VI SCH ×3 (06:24→17:00)
[2021-02-06] MEDS: InsuLIN REG 1unit/0.01ml Soln (100units/ml) SC SCH ×3 (06:24→17:00)
[2021-02-06] MEDS: ALBUTEROL SULF 2.5 MG/0.5ML(0.5%) NEB SOLN NEB PRN ×4 (06:30→18:07)
[2021-02-06 08:00] VITALS: BP 139/69
[2021-02-06] MEDS: APIXABAN 5 MG TAB PO SCH (08:51)
[2021-02-06] MEDS: PANTOPRAZOLE 40 MG TAB PO SCH (08:52)
[2021-02-06] MEDS: HYDROcodone-ACET 5/325MG TAB PO PRN ×2 (08:56→17:13)
[2021-02-06 09:00] VITALS: BP 152/95
[2021-02-06] MEDS: METOPROLOL TARTRATE 25 MG TAB PO SCH (09:33)
[2021-02-06 13:00] VITALS: BP 134/89
[2021-02-06 16:37] VITALS: BP 152/95
[2021-02-06 17:00] VITALS: BP 156/98
== END 2021-02-06 18:32 | DRG 313 ==
LOC: ER 13:14 → EDBD 13:14 → EEVIPCON 13:14 → TELE 15:25 → TELE-EAST 19:35
PROVIDERS: ADMIT Specialist; ATTEND Specialist
PROC: C23GYZZ Positron Emission Tomographic (PET) Imaging of Myocardium using Other Radionuclide (ICD-10-PCS; principal; 2021-02-04)
DX: R07.89 Other chest pain (principal); E11.9 Type 2 diabetes mellitus without complications; K21.9 Gastro-esophageal reflux disease without esophagitis; I10 Essential (primary) hypertension; J45.909 Unspecified asthma, uncomplicated; I48.91 Unspecified atrial fibrillation; Z20.822 Contact with and (suspected) exposure to COVID-19; Z79.01 Long term (current) use of anticoagulants; Z79.84 Long term (current) use of oral hypoglycemic drugs; Z79.899 Other long term (current) drug therapy; Z83.3 Family history of diabetes mellitus; Z86.711 Personal history of pulmonary embolism; Z86.718 Personal history of other venous thrombosis and embolism; M10.9 Gout, unspecified; I25.2 Old myocardial infarction
CPT/HCPCS: 36415; 71045; 71275; 78452; 80053; 82962; 83735; 83880; 84484; 85025; 85049; 85379; 87426; 93005; 93017; 93970; 94640; 96374; 99291; G0378; J0153; J1815

== ENCOUNTER 2022-01-15 04:10 | Emergency (ER) | payer OTHER ==
[~2022-01-15] VITALS: Ht 180.3 cm; Wt 111.1 kg
[~2022-01-15 04:10] MED LIST changes: -METF-370 PO; -OMEP-434 PO
[2022-01-15 05:27] LABS: Basophils # (auto) 0.1 10 ^3/uL (0-0.2); Basophils % (auto) 1.3 % (0.0-2.0); Eosinophils # (auto) 0.6 10 ^3/uL (0-0.8); Eosinophils % (auto) 10.3 % (0.0-7.0); Hematocrit 39.5 % (41.0-53.0); Hemoglobin 13.4 g/dL (13.5-17.5); Lymphocytes # (auto) 1.5 10 ^3/uL (0.4-5.4); Lymphocytes % (auto) 23.9 % (10.0-50.0); Mean Corpuscular Hemoglobin 27.6 pg (28.0-32.0); Mean Corpuscular Hgb Conc. 33.9 g/dL (32.0-36.0); Mean Corpuscular Volume 81.5 fL (80.0-100.0); Monocytes # (auto) 0.5 10 ^3/uL (0-1.3); Neutrophils # (auto) 3.6 10 ^3/uL (1.6-8.6); Neutrophils % (auto) 56.5 % (37.0-80.0); Red Blood Cells 4.85 10^6/uL (4.5-5.90); Red Cell Distribution Width 13.7 % (11.8-14.3); White Blood Cell 6.3 10^3/uL (4.4-10.8)
[2022-01-15 05:44] LABS: Albumin 3.6 g/dL (3.4-5.0); Calcium 8.8 mg/dL (8.5-10.1); Magnesium 2.5 mg/dL (1.6-2.6); Potassium 3.1 mmol/L (3.5-5.1)
[2022-01-15 05:48] LABS: BUN/Creatinine Ratio 9.8; Bilirubin, Total 0.3 mg/dL (0.2-1.0); Total Protein 7.6 g/dL (6.4-8.2)
[2022-01-15] MEDS ORDERED: KETOROLAC TROMETH 30 MG/ML 1ML VIAL IV ONE (08:00)
[2022-01-15] MEDS ORDERED: ALBUTEROL SULF 2.5 MG/0.5ML(0.5%) NEB SOLN NEB ONE (08:00)
[2022-01-15] MEDS ORDERED: cefTRIAXone 1GM/50ML D5W 50 ML IV ONE (08:00)
[2022-01-15] MEDS ORDERED: IPRATROPIUM BROM 0.5 MG/2.5ML INH SOL NEB ONE (08:00)
[2022-01-15] MEDS ORDERED: POTASSIUM EFFERVESENT TAB 25 MEQ PO ONE (09:00)
[2022-01-15 12:21] VITALS: BP 135/86
== END 2022-01-15 12:57 ==
LOC: EEVIPCON 04:10 → ER 04:10 → EDBD 04:10 → ER 12:57
DX: J18.9 Pneumonia, unspecified organism (principal); E87.6 Hypokalemia; I10 Essential (primary) hypertension; I48.91 Unspecified atrial fibrillation; I25.2 Old myocardial infarction; J45.909 Unspecified asthma, uncomplicated; E11.9 Type 2 diabetes mellitus without complications; M10.9 Gout, unspecified; Z20.822 Contact with and (suspected) exposure to COVID-19
CPT/HCPCS: 36415; 71045; 80053; 83735; 84484; 85025; 87040; 87426; 93005; 94640; 96365; 96375; 99285; J0696; J1885; J7644